=== PATIENT | female | born 1970 | race Caucasian/White ===

== ENCOUNTER 2019-07-12 12:06 | Emergency (ER) | payer BC, OTHER ==
[~2019-07-12] VITALS: Ht 157.5 cm; Wt 107.5 kg
[~2019-07-12 12:06] MED LIST: OXYC5CAP2 PO; RANI-467 PO; [UNRECOGNIZED DRUG - OTHER] PO
--- NOTE | 2019-07-12 13:17 | NUR ---
PT TO ED FOR N/V, FEVER, CHILLS SINCE THIS AM. PT STATES SHE SI PREDIABETIC AND BG WAS 258 THIS AM. PT CONNECTED TO MONITORS. VSS. NO NEEDS EXPRESSED. CALL LIGHT WITHIN REACH. DR. ARAIZA TO BS FOR ASSESSMENT. AWAITING ORDERS.
[2019-07-12] MEDS ORDERED: ONDANSETRON 2MG/ML, 2ML ONE (13:35)
--- NOTE | 2019-07-12 13:39 | NUR ---
REPORT RECEIVED DAY[facility]. EKG IN PROG. C/O NAUSEA/ABD TENDERNESS. LABS/ZOFRAN/NS BOLUS. CALL RADER IN REACH.
[2019-07-12] MEDS ORDERED: SODIUM CHLORIDE FLUSH 10ML SYR IVF ONE (14:00)
[2019-07-12] MEDS ORDERED: SODIUM CHLORIDE 0.9% 1,000ML IVBOLUS ONE (14:00)
[2019-07-12] MEDS ORDERED: ONDANSETRON 2MG/ML, 2ML IVPush ONE (14:00)
[2019-07-12 14:09] LABS: BASOPHILS % (AUTO) 0 % (0-1); EOSINOPHILS % (AUTO) 0 % (1-7); LYMPHOCYTES # (AUTO) 0.32 x10^3/uL (1-3.4); LYMPHOCYTES % (AUTO) 5 % (22-44); MD NO; MEAN CORPUSCULAR HGB CONC 34.3 g/dL (32.4-35.8); MEAN CORPUSCULAR VOLUME 96.2 fL (80-100); MONOCYTES # (AUTO) 0.21 x10^3/uL (0.2-0.8); MONOCYTES % (AUTO) 3 % (2-9); NEUTROPHILS # (AUTO) 5.73 x10^3/uL (1.8-6.8); NEUTROPHILS % (AUTO) 91 % (42-75); PLATELET COUNT 115 x10^3/uL (130-400); RED BLOOD COUNT 4.82 x10^6/uL (3.82-5.3); RED CELL DISTRIBUTION WIDTH 14.8 % (9.6-15.2)
[2019-07-12 14:22] LABS: ALANINE AMINOTRANSFERASE 79 U/L (12-78); ALBUMIN 3.6 g/dL (3.4-5.0); ANION GAP 8 mmol/L (5-15); CHLORIDE 105 mmol/L (98-107); CREATININE 1.03 mg/dL (0.55-1.02)
[2019-07-12 14:24] LABS: ALKALINE PHOSPHATASE 94 U/L (45-117); BILIRUBIN,TOTAL 2.2 mg/dL (0.2-1.0); TOTAL PROTEIN 8.3 g/dL (6.4-8.2)
--- NOTE | 2019-07-12 14:44 | NUR ---
ALL RESULTS BACK AT THIS TIME TYLENOL ORDER FOR HEADACHE OBTAINED. LFTS ELEVATED.
[2019-07-12] MEDS ORDERED: ACETAMINOPHEN 325 MG TABLET ONE (14:45)
[2019-07-12] MEDS ORDERED: ACETAMINOPHEN 500 MG TABLET ONE (14:47)
[2019-07-12 14:49] VITALS: BP 134/62
--- NOTE | 2019-07-12 14:50 | NUR ---
dr guzman in room to update pt. pt to be dc home w/ rx. apap per sep. vss. pt aware and agrees. as
[2019-07-12] MEDS ORDERED: ACETAMINOPHEN 500 MG TABLET PO ONE (15:00)
== END 2019-07-12 15:08 | disposition home or self-care (01) ==
LOC: ED 15:00
DX: R11.2 Nausea with vomiting, unspecified (principal); R19.7 Diarrhea, unspecified; R10.84 Generalized abdominal pain; K21.9 Gastro-esophageal reflux disease without esophagitis; Z90.49 Acquired absence of other specified parts of digestive tract
CPT/HCPCS: 36415; 80053; 82962; 83690; 85025; 93005; 96361; 96374; 99284; J2405; J7030

== ENCOUNTER 2019-10-15 08:09 | Emergency (ER) | payer OTHER ==
[~2019-10-15] VITALS: Ht 157.5 cm; Wt 104.0 kg
--- NOTE | 2019-10-15 08:27 | NUR ---
Pt sent by pcp for rectal bleeding which started friday. patient states blood with each bowel movement. The patient is alert, oriented, warm, and dry. no complaints of discomfort, cp, sob, cough, fever, recent trauma. ppe in place.
[2019-10-15] MEDS ORDERED: SODIUM CHLORIDE FLUSH 10ML SYR IVF ONE (09:30)
[2019-10-15 09:46] LABS: BASOPHILS # (AUTO) 0.01 x10^3/uL (0-0.1); BASOPHILS % (AUTO) 0 % (0-1); EOSINOPHILS # (AUTO) 0.08 x10^3/uL (0-0.4); EOSINOPHILS % (AUTO) 2 % (1-7); LYMPHOCYTES # (AUTO) 1.06 x10^3/uL (1-3.4); LYMPHOCYTES % (AUTO) 24 % (22-44); MD NO; MEAN CORPUSCULAR HGB CONC 34.8 g/dL (32.4-35.8); MEAN CORPUSCULAR VOLUME 94.8 fL (80-100); MEAN PLATELET VOLUME 8.3 fL (7.4-10.4); MONOCYTES # (AUTO) 0.27 x10^3/uL (0.2-0.8); MONOCYTES % (AUTO) 6 % (2-9); NEUTROPHILS % (AUTO) 68 % (42-75); PLATELET COUNT 101 x10^3/uL (130-400); RED BLOOD COUNT 4.65 x10^6/uL (3.82-5.3); RED CELL DISTRIBUTION WIDTH 13.8 % (9.6-15.2)
[2019-10-15 09:59] LABS: ALANINE AMINOTRANSFERASE 121 U/L (12-78); ALBUMIN 3.2 g/dL (3.4-5.0); ANION GAP 9 mmol/L (5-15); CALCIUM 8.8 mg/dL (8.5-10.1); CHLORIDE 104 mmol/L (98-107); CREATININE 0.92 mg/dL (0.55-1.02)
[2019-10-15 10:01] LABS: ALKALINE PHOSPHATASE 121 U/L (45-117); BILIRUBIN,TOTAL 1.4 mg/dL (0.2-1.0)
--- NOTE | 2019-10-15 10:31 | NUR ---
RN IN TO MEET PATIENT. PT C/O MINOR CRAMPING AT THE PUBIS SYMPHASIS AREA. NO ACTIVE BLEEDING NOTED AT THIS TIME. VITALS AND ASSESSMENT DONE. CT ARRIVES, TAKES PATIENT TO CT.
--- NOTE | 2019-10-15 10:41 | NUR ---
PT RETURNED FROM CT. PT STABLE.
[2019-10-15] MEDS ORDERED: OMNIPAQUE 350 MG/ML, 100ML BOTTLE ONE (10:43)
[2019-10-15 11:37] VITALS: BP 145/67
--- NOTE | 2019-10-15 11:38 | NUR ---
TASK RN: Patient/Caregiver given discharge instructions and they have confirmed that they understand the instructions. Patient ambulatory with steady gait.
== END 2019-10-15 11:39 | disposition home or self-care (01) ==
LOC: ED 08:33
DX: K64.4 Residual hemorrhoidal skin tags (principal); K92.1 Melena; K21.9 Gastro-esophageal reflux disease without esophagitis
CPT/HCPCS: 36415; 74177; 80053; 85025; 99285; Q9967